=== PATIENT | male | born 1960 | race Two or more races ===

== ENCOUNTER 2018-09-12 23:49 | Emergency (ER) | payer BC, MEDICAID ==
[~2018-09-12] VITALS: Ht 167.6 cm; Wt 77.1 kg
--- NOTE | 2018-09-12 23:49 | NUR ---
patient BIB ambulance from home. c/o of n/v and dizziness.
--- NOTE | 2018-09-12 23:50 | NUR ---
Patient being seen by
--- NOTE | 2018-09-12 23:56 | NUR ---
ER physician at bedside with relocation associate
[2018-09-13] MEDS ORDERED: DIPHENOXYLATE HCL/ATROP SULF TABLET PO ONE
[2018-09-13] MEDS ORDERED: IV NORMAL SALINE 1000 ML BAG IV ONE
[2018-09-13] MEDS ORDERED: DIPHENOXYLATE HCL/ATROP SULF TABLET ONE (00:07)
[2018-09-13 00:17] LABS: BASOPHILS # (AUTO) 0.1 K/uL (0.0-8.0); BASOPHILS % (AUTO) 0.5 % (0.0-2.0); EOSINOPHILS % (AUTO) 0.5 % (0.0-7.0); LYMPHOCYTES # (AUTO) 1.9 K/uL (20.0-40.0); LYMPHOCYTES % (AUTO) 18.7 % (20.5-51.5); MEAN CORPUSCULAR HEMOGLOBIN 28.8 uug (23.8-33.4); MEAN CORPUSCULAR HGB CONC 33 g/dL (32.5-36.3); MEAN CORPUSCULAR VOLUME 86.5 fL (73.0-96.2); MONOCYTES # (AUTO) 0.4 K/uL (2.0-10.0); MONOCYTES % (AUTO) 3.8 % (0.0-11.0); NEUTROPHILS # (AUTO) 7.7 K/uL (1.8-8.9); NEUTROPHILS % (AUTO) 76.5 % (38.5-71.5); PLATELET COUNT (AUTO) 254 K/uL (152-348); RED BLOOD CELL COUNT(AUTO) 4.86 MIL/uL (4.06-5.63); WHITE BLOOD COUNT (AUTO) 10.1 K/uL (3.6-10.2)
[2018-09-13 00:18] LABS: CREATININE 0.9 mg/dL (0.6-1.3); POTASSIUM 3.8 mmol/L (3.5-5.1)
[2018-09-13 00:24] LABS: BILIRUBIN,DIRECT 0.1 mg/dL (0.0-0.2); BILIRUBIN,TOTAL 0.1 mg/dL (0.2-1.0)
[2018-09-13] MEDS ORDERED: HYDROMORPHONE 1 MG/1 ML DISP.SYRIN IV ONE (00:30)
[2018-09-13] MEDS ORDERED: HYDROMORPHONE 1 MG/1 ML DISP.SYRIN ONE (00:30)
--- NOTE | 2018-09-13 00:37 | NUR ---
fluid challenge done. patient able to drink 30 ml of water without complications. No choking, coughing, or gargling noted.
--- NOTE | 2018-09-13 01:01 | NUR ---
Patient discharged to home in stable conditon. Written and verbal after care instructions given. Patient verbalizes understanding of instructions. Prior to discharge, patient cmopleted and passed swallowing test and ambulatory test. Patient at bedside stated that she will be driving him home wih son. Patient denies any respiratory distress/dizziness/pain prior to discharge. All belongings and exit care package taken with patient. patient self ambulatory with steady gait.
[2018-09-13 01:03] VITALS: BP 109/66
== END 2018-09-13 00:50 | disposition home or self-care (01) ==
LOC: ER 23:56
DX: R55 Syncope and collapse (principal); R11.2 Nausea with vomiting, unspecified; R19.7 Diarrhea, unspecified; R10.84 Generalized abdominal pain; I10 Essential (primary) hypertension
CPT/HCPCS: 36415; 71045; 80048; 80076; 83690; 85025; 93005; 96361; 96374; 99284; J1170; A4663; J7030